=== PATIENT | male | born 1985 | race Two or more races ===

== ENCOUNTER 2024-01-24 08:50 | Emergency (ER) | payer MEDICAID, OTHER ==
[~2024-01-24] VITALS: Ht 182.9 cm; Wt 83.5 kg
[2024-01-24] MEDS ORDERED: IBU600T PO (11:30)
[2024-01-24 11:39] VITALS: BP 146/70; PULSE 68; RESP 18; TEMP 98; O2SAT 99
[2024-01-24] MEDS: KETOROLAC TROMETH 60MG/2ML VIAL IM ONE (11:39)
== END 2024-01-24 11:58 | disposition home or self-care (01) ==
LOC: ER 08:50
DX: R07.81 Pleurodynia (principal); R09.1 Pleurisy; F17.210 Nicotine dependence, cigarettes, uncomplicated; F12.10 Cannabis abuse, uncomplicated
CPT/HCPCS: 36415; 71101; 85379; 96372; 99284; J1885